=== PATIENT | female | born 1985 | race African-American/Black ===

== ENCOUNTER 2019-11-11 23:40 | Inpatient (IN) ==
[2019-11-12] MEDS ORDERED: CITRIC ACID/SODIUM CITRATE 30 ML UDCUP PO ONE (00:05)
[2019-11-12] MEDS ORDERED: ceFAZolin 2,000 MG in PREMIX 1 EACH IV ONE (00:05)
[2019-11-12] MEDS ORDERED: FAMOTIDINE 20 MG/2 ML VIAL IV ONE (00:05)
[2019-11-12] MEDS ORDERED: LACTATED RINGERS 1,000 ML IV SCH (00:30)
[2019-11-12 00:49] LABS: Basophils % 0.2 % (0.0-0.8); Eosinophils # 0.1 10*3/uL (0.0-0.87); Eosinophils % 0.4 % (0.00-10.9); Hematocrit 34.8 VOL% (35.7-47.0); Hemoglobin 11.4 GM/DL (12.0-16.0); Immature Granulocytes % 0.8 %; Lymphocytes # 2.2 10*3/uL (1.4-4.0); Lymphocytes % 18.9 % (21.3-54.2); Mean Corpuscular HGB Conc 32.8 GM/DL (32-36); Mean Corpuscular Volume 85.1 FL (87-102); Monocytes % 6.6 % (1.7-12.7); Neutrophils % 73.1 % (38.7-73.9); Platelet Count 167 T/CUMM (130-400); Red Blood Count 4.09 MC/CUMM (3.8-5.5); Red Cell Distribution Width 14.6 % (9.3-17.3); White Blood Count 11.9 T/CUMM (4-12)
[2019-11-12 01:09] LABS: Cord Arterial Blood HCO3 23.2 MMOL/L
[2019-11-12 01:10] LABS: Cord Venous Blood HCO3 21.7 MMOL/L; Cord Venous Blood PCO2 47.9 MMHG; Cord Venous Blood PO2 47.5
[2019-11-12] MEDS ORDERED: OXYTOCIN/LR 20 UNIT/1,000 ML BAG IV ONE ×2 (01:13→01:55)
[2019-11-12] MEDS ORDERED: ACETAMINOPHEN 325 MG TABLET PO PRN (01:55)
[2019-11-12] MEDS ORDERED: BISACODYL 10 MG SUPP RECTAL PRN (01:55)
[2019-11-12] MEDS ORDERED: BENZOCAINE 20%/MENTHOL 0.5% SPRAY 56 GM CAN TOP PRN (01:55)
[2019-11-12] MEDS ORDERED: MEASLES/MUMPS/RUBELLA VACCINE 0.5 ML VIAL SUBCUT ONE (01:55)
[2019-11-12] MEDS ORDERED: DIPH/TET/ACEL PERT BOOSTER VACCINE 0.5 ML VIAL IM ONE (01:55)
[2019-11-12] MEDS ORDERED: RHO(D) IMMUNE GLOBULIN 300 MCG SYRINGE IM ONE (01:55)
[2019-11-12] MEDS ORDERED: ONDANSETRON 4 MG/2 ML VIAL IV PRN (01:55)
[2019-11-12] MEDS ORDERED: LANOLIN 50% CREAM 0.3 OZ TUBE TOP PRN (01:55)
[2019-11-12] MEDS ORDERED: HYDROCORTISONE 2.5% RECTAL CREAM 30 GM TUBE TOP PRN (01:55)
[2019-11-12] MEDS ORDERED: WITCH HAZEL PADS 100/JAR TOP PRN (01:55)
[2019-11-12] MEDS ORDERED: PHENYLEPHRINE 1 MG/10 ML SYRINGE IV ONE (02:03)
[2019-11-12] MEDS ORDERED: fentaNYL 100 MCG/2 ML VIAL ONE (02:04)
[2019-11-12] MEDS ORDERED: MIDAZOLAM 2 MG/2 ML VIAL ONE (02:04)
[2019-11-12] MEDS ORDERED: ONDANSETRON 4 MG/2 ML VIAL ONE (02:04)
[2019-11-12] MEDS ORDERED: propofoL 200 MG/20 ML VIAL IV ONE (02:04)
[2019-11-12] MEDS ORDERED: LIDOCAINE 2% 5 ML VIAL ONE (02:04)
[2019-11-12] MEDS ORDERED: SUCCINYLCHOLINE 200 MG/10 ML VIAL ONE (02:05)
[2019-11-12] MEDS ORDERED: SEVOFLURANE 1 UNIT/15 MINUTE INH ONE (02:05)
[2019-11-12] MEDS: ACETAMINOPHEN 500 MG TABLET PO PRN ×2 (02:50→08:27)
[2019-11-12] MEDS: KETOROLAC 30 MG/1 ML VIAL IV SCH ×3 (02:50→15:16)
[2019-11-12] MEDS ORDERED: OXYTOCIN/LR 20 UNIT/1,000 ML BAG IV SCH (03:00)
[2019-11-12 04:37] LABS: Basophils % 0.2 % (0.0-0.8); Hematocrit 30.1 VOL% (35.7-47.0); Hemoglobin 9.9 GM/DL (12.0-16.0); Immature Granulocytes % 0.5 %; Lymphocytes # 1.5 10*3/uL (1.4-4.0); Lymphocytes % 7.9 % (21.3-54.2); Mean Corpuscular HGB Conc 32.9 GM/DL (32-36); Mean Corpuscular Volume 84.8 FL (87-102); Mean Platelet Volume 10.9 FL (9.6-12.0); Monocytes % 3.4 % (1.7-12.7); Platelet Count 152 T/CUMM (130-400); Red Blood Count 3.55 MC/CUMM (3.8-5.5); Red Cell Distribution Width 14.4 % (9.3-17.3); White Blood Count 18.7 T/CUMM (4-12)
[2019-11-12] MEDS: ceFAZolin 1,000 MG in SYRINGE 1 EACH IV SCH ×2 (10:48→18:39)
[2019-11-12] MEDS: DOCUSATE SODIUM 100 MG CAPSULE PO SCH ×2 (10:48→20:58)
[2019-11-12] MEDS: oxyCODONE/ACETAMINOPHEN 5-325 MG TABLET PO PRN ×3 (12:09→18:43)
[2019-11-12] MEDS: IBUPROFEN 800 MG TABLET PO PRN (20:57)
[2019-11-12] MEDS: SIMETHICONE CHEW 80 MG TABLET PO PRN (20:58)
[2019-11-12] MEDS: MAGNESIUM HYDROXIDE SUSP 30 ML UDCUP PO PRN (20:58)
[2019-11-13] MEDS ORDERED: BENZOCAINE/MENTHOL LOZENGE 18/BOX PO PRN (00:23)
[2019-11-13] MEDS: oxyCODONE/ACETAMINOPHEN 5-325 MG TABLET PO PRN ×4 (02:31→19:20)
[2019-11-13] MEDS: IBUPROFEN 800 MG TABLET PO PRN ×3 (06:25→19:20)
[2019-11-13] MEDS: SIMETHICONE CHEW 80 MG TABLET PO PRN (08:31)
[2019-11-13] MEDS: DOCUSATE SODIUM 100 MG CAPSULE PO SCH ×2 (08:32→20:30)
[2019-11-13] MEDS ORDERED: diphenhydrAMINE CAP 25 MG CAPSULE PO PRN (10:02)
[2019-11-13] MEDS: MAGNESIUM HYDROXIDE SUSP 30 ML UDCUP PO PRN (20:30)
[2019-11-14] MEDS: IBUPROFEN 800 MG TABLET PO PRN (02:48)
[2019-11-14] MEDS: oxyCODONE/ACETAMINOPHEN 5-325 MG TABLET PO PRN ×2 (02:48→09:06)
[2019-11-14] MEDS: ONDANSETRON 4 MG TABLET PO PRN ×2 (05:17→11:13)
[2019-11-14 08:03] VITALS: BP 115/68
[2019-11-14] MEDS: MAGNESIUM HYDROXIDE SUSP 30 ML UDCUP PO PRN (09:06)
[2019-11-14] MEDS: DOCUSATE SODIUM 100 MG CAPSULE PO SCH (09:06)
[2019-11-14] MEDS: SIMETHICONE CHEW 80 MG TABLET PO PRN (09:06)
== END 2019-11-14 13:15 | disposition home or self-care (01) | DRG 785 ==
LOC: N.LDOUT 23:40 → N.LD 23:43 → N.OB 11-12 09:31
PROVIDERS: ADMIT Specialist; ATTEND Specialist